=== PATIENT | female | born 1975 | race Two or more races ===

== ENCOUNTER 2018-09-13 15:44 | Emergency (ER) | payer BC ==
[~2018-09-13] VITALS: Ht 165.1 cm; Wt 90.7 kg
[2018-09-13 16:03] VITALS: BP 152/91
[2018-09-13] MEDS ORDERED: SODIUM CHLORIDE 0.9% 1,000 ML IV ONE (16:16)
[2018-09-13 16:25] LABS: Urine Bacteria NONE SEEN /hpf (None Seen); Urine Blood Negative /uL (Negative); Urine WBC <1 /hpf (0 - 5)
[2018-09-13 16:42] LABS: Basophils # (auto) 0.1 uL; Basophils % (auto) 0.8 % (0.0-2.0); Eosinophils # (auto) 0.1 uL; Eosinophils % (auto) 0.6 % (0.0-7.0); Hematocrit 44.1 % (36.0-46.0); Hemoglobin 15.1 g/dL (12.2-16.2); Lymphocytes # (auto) 2.2 uL; Lymphocytes % (auto) 20.8 % (10.0-50.0); Mean Corpuscular Hemoglobin 29.7 pg (28.0-32.0); Mean Corpuscular Hgb Conc. 34.1 g/dL (32.0-36.0); Monocytes # (auto) 0.5 uL; Monocytes % (auto) 4.6 % (0.0-12.0); Neutrophils # (auto) 7.7 uL; Neutrophils % (auto) 73.2 % (37.0-80.0); Platelet Count (auto) 237 10^3/uL (140-450); Red Blood Cells 5.07 10^6/uL (4.0-5.20); Red Cell Distribution Width 13.1 % (11.8-14.3); White Blood Cell 10.5 10^3/uL (4.4-10.8)
[2018-09-13 16:59] LABS: Albumin 3.6 g/dL (3.4-5.0); BUN/Creatinine Ratio 17.7; Calcium 8.5 mg/dL (8.5-10.1); Magnesium 1.9 mg/dL (1.6-2.6); Potassium 3.8 mmol/L (3.5-5.1)
[2018-09-13 17:01] LABS: Bilirubin, Total 0.3 mg/dL (0.2-1.0); Total Protein 8.3 g/dL (6.4-8.2)
== END 2018-09-13 18:13 | disposition home or self-care (01) ==
LOC: EEVIPCON 15:44 → ER 15:44
DX: E11.65 Type 2 diabetes mellitus with hyperglycemia (principal)
CPT/HCPCS: 36415; 80053; 81001; 82010; 82962; 83036; 83735; 85025; 94761; 96360; 99285; J7030

== ENCOUNTER → 2020-02-27 | Outpatient (CLI) | payer OTHER | END | disposition home or self-care (01) | LOC: LAB 13:46 | PROVIDERS: ATTEND Nurse Practitioner Family | DX: Z03.818 Encounter for observation for suspected exposure to other biological agents ruled out (principal) | CPT/HCPCS: C9803; U0003 ==

== ENCOUNTER → 2020-07-11 | Outpatient (CLI) | payer OTHER | END | disposition home or self-care (01) | LOC: LAB 09:00 | PROVIDERS: ATTEND Nurse Practitioner Family | DX: Z20.828 Contact with and (suspected) exposure to other viral communicable diseases (principal) ==

== ENCOUNTER → 2020-11-14 | Outpatient (CLI) | payer OTHER | END | disposition home or self-care (01) | LOC: LAB 14:40 | PROVIDERS: ATTEND Nurse Practitioner Family | DX: Z20.828 Contact with and (suspected) exposure to other viral communicable diseases (principal) ==

== ENCOUNTER 2021-06-19 06:48 | Inpatient (IN) | payer BC, OTHER ==
[~2021-06-19] VITALS: Ht 165.1 cm; Wt 86.2 kg
[2021-06-19 07:53] LABS: Basophils # (auto) 0 10 ^3/uL (0-0.2); Basophils % (auto) 0.5 % (0.0-2.0); Eosinophils # (auto) 0 10 ^3/uL (0-0.8); Eosinophils % (auto) 0.1 % (0.0-7.0); Hematocrit 47.7 % (36.0-46.0); Hemoglobin 16.4 g/dL (12.2-16.2); Lymphocytes # (auto) 0.7 10 ^3/uL (0.4-5.4); Lymphocytes % (auto) 12.3 % (10.0-50.0); Mean Corpuscular Hgb Conc. 34.4 g/dL (32.0-36.0); Monocytes # (auto) 0.6 10 ^3/uL (0-1.3); Monocytes % (auto) 9.7 % (0.0-12.0); Neutrophils # (auto) 4.5 10 ^3/uL (1.6-8.6); Neutrophils % (auto) 77.4 % (37.0-80.0); Nucleated Red Blood Cells % 0.2 %; Red Blood Cells 5.49 10^6/uL (4.0-5.20); Red Cell Distribution Width 12.8 % (11.8-14.3); White Blood Cell 5.8 10^3/uL (4.4-10.8)
[2021-06-19 07:58] LABS: Albumin 3.2 g/dL (3.4-5.0); Calcium 8.8 mg/dL (8.5-10.1); Potassium 4.4 mmol/L (3.5-5.1)
[2021-06-19] MEDS ORDERED: ACETAMINOPHEN 325 MG TAB PO ONE (08:00)
[2021-06-19 08:07] LABS: BUN/Creatinine Ratio 23.2; Bilirubin, Total 0.5 mg/dL (0.2-1.0); CRP High Sensitivity 10.1 mg/dL (< 0.3); Total Protein 8.8 g/dL (6.4-8.2)
[2021-06-19] MEDS ORDERED: InsuLIN REG 1unit/0.01ml Soln (100units/ml) IV ONE (08:15)
[2021-06-19] MEDS ORDERED: ZINC SULFATE 220mg CAP or TAB PO ONE (08:15)
[2021-06-19] MEDS ORDERED: DexAMETHasone SOD PHOS 10MG/1ML VIAL INJ IV ONE (08:15)
[2021-06-19] MEDS ORDERED: cefTRIAXone 1GM/50ML D5W 50 ML IV ONE (08:15)
[2021-06-19] MEDS ORDERED: ASCORBIC ACID 500 MG TAB PO ONE ×2 (08:15→09:15)
[2021-06-19] MEDS ORDERED: AZITHROMYCIN 500MG/ 250ML 250 ML IV ONE (08:15)
[2021-06-19] MEDS ORDERED: REMDESIVIR PER PHARMACY 0 ML IV SCH (08:15)
[2021-06-19] MEDS ORDERED: SODIUM CHLORIDE 0.9% 1,000 ML IV ONE ×2 (08:15)
[2021-06-19 08:18] LABS: Urine Bacteria FEW /hpf (None Seen); Urine Blood Negative /uL (Negative); Urine Hyaline Cast MOD /lpf (0 - 2); Urine Mucus FEW (None Seen); Urine Specific Gravity 1.035 (1.001-1.035); Urine WBC 2 /hpf (0 - 5)
[2021-06-19] MEDS ORDERED: NITROGLYCERIN 0.4 MG SL TAB SL PRN (09:00)
[2021-06-19] MEDS ORDERED: DEXTROSE (50%) 50ML SYRG IV PRN (09:00)
[2021-06-19] MEDS ORDERED: ACETAMINOPHEN 500 MG TAB PO PRN (09:00)
[2021-06-19] MEDS ORDERED: MORPHINE SULF INJ 2 MG/ML SYRINGE 1ML IV PRN (09:00)
[2021-06-19 10:25] VITALS: BP 131/86
[2021-06-19] MEDS: CHOLECALCIFEROL (VITD3) 2,000 UNIT CAP/TAB PO SCH (10:53)
[2021-06-19] MEDS: ENOXAPARIN SOD 40 MG/0.4 ML SYRINGE SC SCH ×2 (10:53→21:40)
[2021-06-19] MEDS: SODIUM CHLORIDE 0.9% 1,000 ML IV SCH ×2 (11:30→18:32)
[2021-06-19] MEDS: ACCU-CHEK COMFORT CURVE STRIP VI SCH ×3 (12:26→21:40)
[2021-06-19] MEDS: InsuLIN REG 1unit/0.01ml Soln (100units/ml) SC SCH ×3 (12:27→22:27)
[2021-06-19 13:00] VITALS: BP 95/61
[2021-06-19] MEDS ORDERED: REMDESIVIR 200 MG in NS 210ml LOADING DOSE ADULT IV ONE (15:00)
[2021-06-19 17:00] VITALS: BP 144/79
[2021-06-19] MEDS: BUDESONIDE (INHALATION) 180 MCG IH IN SCH (19:46)
[2021-06-19] MEDS: ALBUTEROL SULF HFA 90MCG INH 200DOSE IN PRN (19:54)
[2021-06-19 20:00] VITALS: BP 126/76
[2021-06-19 22:00] VITALS: BP 126/76
[2021-06-20] VITALS (8 sets, daily range): BP systolic 102–130; BP diastolic 66–80
[2021-06-20] MEDS: ACCU-CHEK COMFORT CURVE STRIP VI SCH ×4 (06:18→21:35)
[2021-06-20] MEDS: InsuLIN REG 1unit/0.01ml Soln (100units/ml) SC SCH ×4 (06:19→22:15)
[2021-06-20] MEDS: BUDESONIDE (INHALATION) 180 MCG IH IN SCH ×2 (06:31→22:00)
[2021-06-20] MEDS: ALBUTEROL SULF HFA 90MCG INH 200DOSE IN PRN ×2 (06:32→22:52)
[2021-06-20 06:50] LABS: Basophils # (auto) 0 10 ^3/uL (0-0.2); Basophils % (auto) 0.2 % (0.0-2.0); Eosinophils # (auto) 0 10 ^3/uL (0-0.8); Hematocrit 41.1 % (36.0-46.0); Hemoglobin 14.6 g/dL (12.2-16.2); Lymphocytes # (auto) 0.9 10 ^3/uL (0.4-5.4); Lymphocytes % (auto) 20.7 % (10.0-50.0); Mean Corpuscular Hgb Conc. 35.4 g/dL (32.0-36.0); Mean Corpuscular Volume 84.6 fL (80.0-100.0); Monocytes # (auto) 0.5 10 ^3/uL (0-1.3); Monocytes % (auto) 11.3 % (0.0-12.0); Neutrophils % (auto) 67.8 % (37.0-80.0); Nucleated Red Blood Cells % 0.1 %; Red Blood Cells 4.86 10^6/uL (4.0-5.20); Red Cell Distribution Width 12.6 % (11.8-14.3); White Blood Cell 4.4 10^3/uL (4.4-10.8)
[2021-06-20 07:06] LABS: Albumin 2.7 g/dL (3.4-5.0); Calcium 8.3 mg/dL (8.5-10.1); Potassium 3.3 mmol/L (3.5-5.1)
[2021-06-20 07:20] LABS: BUN/Creatinine Ratio 38.9; Bilirubin, Total 0.3 mg/dL (0.2-1.0); Total Protein 7.4 g/dL (6.4-8.2)
[2021-06-20] MEDS: DexAMETHasone SOD PHOS 10MG/1ML VIAL INJ IV SCH (10:15)
[2021-06-20] MEDS: ASCORBIC ACID 1,000 MG TAB PO SCH (10:16)
[2021-06-20] MEDS: ZINC SULFATE 220mg CAP or TAB PO SCH (10:16)
[2021-06-20] MEDS: AZITHROMYCIN 500MG/ 250ML 250 ML IV SCH (10:16)
[2021-06-20] MEDS: ENOXAPARIN SOD 40 MG/0.4 ML SYRINGE SC SCH ×2 (10:16→21:35)
[2021-06-20] MEDS: CHOLECALCIFEROL (VITD3) 2,000 UNIT CAP/TAB PO SCH (10:16)
[2021-06-20] MEDS ORDERED: FUROSEMIDE 20 MG/2 ML VIAL IV ONE (13:30)
[2021-06-20] MEDS ORDERED: POTASSIUM CHL 20 Meq TABLET PO ONE (13:30)
[2021-06-20] MEDS: REMDESIVIR 100mg 100 MG in SODIUM CHL 0.9% 230 ML IV SCH (15:14)
[2021-06-20] MEDS ORDERED: DEXTROSE (50%) 50ML SYRG IV PRN (17:15)
[2021-06-20] MEDS: metFORMIN HYDROCHLORIDE 500 MG TAB PO SCH (18:15)
[2021-06-20] MEDS ORDERED: INSULIN LANTUS (GLARGINE) 1 /0.01ml (100units/ml) SC SCH (22:00)
[2021-06-20] MEDS: INSULIN LANTUS (GLARGINE) 1 /0.01ml (100units/ml) SC SCH (22:14)
[2021-06-21 05:20] VITALS: BP 112/74
[2021-06-21 06:26] LABS: Potassium 3.1 mmol/L (3.5-5.1)
[2021-06-21 06:29] LABS: Albumin 2.9 g/dL (3.4-5.0); BUN/Creatinine Ratio 42.1; Calcium 8.6 mg/dL (8.5-10.1)
[2021-06-21 06:32] LABS: Bilirubin, Total 0.4 mg/dL (0.2-1.0); Total Protein 7.5 g/dL (6.4-8.2)
[2021-06-21] MEDS: ACCU-CHEK COMFORT CURVE STRIP VI SCH ×4 (06:54→21:47)
[2021-06-21] MEDS: InsuLIN REG 1unit/0.01ml Soln (100units/ml) SC SCH ×4 (06:55→22:11)
[2021-06-21] MEDS: ZINC SULFATE 220mg CAP or TAB PO SCH (07:51)
[2021-06-21] MEDS: DexAMETHasone SOD PHOS 10MG/1ML VIAL INJ IV SCH (07:51)
[2021-06-21] MEDS: AZITHROMYCIN 500MG/ 250ML 250 ML IV SCH (07:51)
[2021-06-21] MEDS: metFORMIN HYDROCHLORIDE 500 MG TAB PO SCH ×2 (07:51→18:42)
[2021-06-21] MEDS: CHOLECALCIFEROL (VITD3) 2,000 UNIT CAP/TAB PO SCH (07:52)
[2021-06-21] MEDS: ALBUTEROL SULF HFA 90MCG INH 200DOSE IN PRN (07:52)
[2021-06-21] MEDS: ASCORBIC ACID 1,000 MG TAB PO SCH (07:52)
[2021-06-21] MEDS: BUDESONIDE (INHALATION) 180 MCG IH IN SCH ×2 (07:52→19:19)
[2021-06-21 09:00] VITALS: BP 101/56
[2021-06-21] MEDS ORDERED: POTASSIUM CHL 20 Meq TABLET PO SCH (10:00)
[2021-06-21] MEDS: INSULIN LANTUS (GLARGINE) 1 /0.01ml (100units/ml) SC SCH ×2 (10:50→22:55)
[2021-06-21] MEDS: FUROSEMIDE 20 MG/2 ML VIAL IV SCH (10:51)
[2021-06-21 13:09] VITALS: BP 131/74
[2021-06-21] MEDS: ENOXAPARIN SOD 40 MG/0.4 ML SYRINGE SC SCH ×2 (15:33→21:47)
[2021-06-21] MEDS: REMDESIVIR 100mg 100 MG in SODIUM CHL 0.9% 230 ML IV SCH (15:33)
[2021-06-21 17:00] VITALS: BP 104/73
[2021-06-21] MEDS: POTASSIUM CHL 20 Meq TABLET PO SCH (21:46)
[2021-06-21 22:20] VITALS: BP 120/75
[2021-06-22 05:16] VITALS: BP 98/69
[2021-06-22] MEDS: ALBUTEROL SULF HFA 90MCG INH 200DOSE IN PRN ×2 (06:10→21:42)
[2021-06-22] MEDS: BUDESONIDE (INHALATION) 180 MCG IH IN SCH ×2 (06:11→21:42)
[2021-06-22] MEDS: ACCU-CHEK COMFORT CURVE STRIP VI SCH ×4 (06:27→21:54)
[2021-06-22] MEDS: guaiFENesin-DM 100/10mg/5ml SYR PO PRN (06:28)
[2021-06-22] MEDS: InsuLIN REG 1unit/0.01ml Soln (100units/ml) SC SCH ×4 (06:29→21:56)
[2021-06-22 06:37] LABS: Albumin 2.2 g/dL (3.4-5.0); Calcium 8.2 mg/dL (8.5-10.1); Potassium 3.9 mmol/L (3.5-5.1)
[2021-06-22 06:39] LABS: BUN/Creatinine Ratio 42.4; Bilirubin, Total 0.6 mg/dL (0.2-1.0); Total Protein 7.6 g/dL (6.4-8.2)
[2021-06-22] MEDS: metFORMIN HYDROCHLORIDE 500 MG TAB PO SCH ×2 (08:16→18:26)
[2021-06-22 09:00] VITALS: BP 112/76
[2021-06-22] MEDS: FUROSEMIDE 20 MG/2 ML VIAL IV SCH (09:49)
[2021-06-22] MEDS: DexAMETHasone SOD PHOS 10MG/1ML VIAL INJ IV SCH (09:49)
[2021-06-22] MEDS: ZINC SULFATE 220mg CAP or TAB PO SCH (09:49)
[2021-06-22] MEDS: ASCORBIC ACID 1,000 MG TAB PO SCH (09:50)
[2021-06-22] MEDS: POTASSIUM CHL 20 Meq TABLET PO SCH ×2 (09:50→21:53)
[2021-06-22] MEDS: AZITHROMYCIN 500MG/ 250ML 250 ML IV SCH (09:50)
[2021-06-22] MEDS: CHOLECALCIFEROL (VITD3) 2,000 UNIT CAP/TAB PO SCH (09:50)
[2021-06-22] MEDS: ENOXAPARIN SOD 40 MG/0.4 ML SYRINGE SC SCH ×2 (09:51→21:54)
[2021-06-22] MEDS: INSULIN LANTUS (GLARGINE) 1 /0.01ml (100units/ml) SC SCH ×2 (10:54→21:59)
[2021-06-22 13:00] VITALS: BP 110/77
[2021-06-22] MEDS: REMDESIVIR 100mg 100 MG in SODIUM CHL 0.9% 230 ML IV SCH (13:52)
[2021-06-22 14:31] VITALS: BP 112/76
[2021-06-22 17:00] VITALS: BP 106/66
[2021-06-22 22:00] VITALS: BP 100/69
[2021-06-23 05:00] VITALS: BP 114/83
[2021-06-23] MEDS: ALBUTEROL SULF HFA 90MCG INH 200DOSE IN PRN (05:47)
[2021-06-23] MEDS: BUDESONIDE (INHALATION) 180 MCG IH IN SCH (05:48)
[2021-06-23 06:25] LABS: Albumin 2.7 g/dL (3.4-5.0); BUN/Creatinine Ratio 37.5; Calcium 8.7 mg/dL (8.5-10.1); Potassium 3.4 mmol/L (3.5-5.1)
[2021-06-23 06:28] LABS: Bilirubin, Total 0.7 mg/dL (0.2-1.0); Total Protein 7.8 g/dL (6.4-8.2)
[2021-06-23] MEDS: ACCU-CHEK COMFORT CURVE STRIP VI SCH ×4 (06:58→21:43)
[2021-06-23] MEDS: InsuLIN REG 1unit/0.01ml Soln (100units/ml) SC SCH ×4 (06:59→21:40)
[2021-06-23 08:00] VITALS: BP 112/75
[2021-06-23] MEDS: FUROSEMIDE 20 MG/2 ML VIAL IV SCH (08:42)
[2021-06-23] MEDS: ASCORBIC ACID 1,000 MG TAB PO SCH (08:42)
[2021-06-23] MEDS: metFORMIN HYDROCHLORIDE 500 MG TAB PO SCH ×2 (08:42→18:52)
[2021-06-23] MEDS: DexAMETHasone SOD PHOS 10MG/1ML VIAL INJ IV SCH (08:42)
[2021-06-23] MEDS: ZINC SULFATE 220mg CAP or TAB PO SCH (08:42)
[2021-06-23] MEDS: AZITHROMYCIN 500MG/ 250ML 250 ML IV SCH (08:42)
[2021-06-23] MEDS: CHOLECALCIFEROL (VITD3) 2,000 UNIT CAP/TAB PO SCH (08:43)
[2021-06-23] MEDS: POTASSIUM CHL 20 Meq TABLET PO SCH ×2 (08:43→21:47)
[2021-06-23] MEDS: ENOXAPARIN SOD 40 MG/0.4 ML SYRINGE SC SCH ×2 (09:14→21:46)
[2021-06-23] MEDS ORDERED: POTASSIUM EFFERVESENT TAB 25 MEQ PO ONE (10:45)
[2021-06-23] MEDS: INSULIN LANTUS (GLARGINE) 1 /0.01ml (100units/ml) SC SCH ×2 (11:07→21:42)
[2021-06-23 12:00] VITALS: BP 108/75
[2021-06-23] MEDS: REMDESIVIR 100mg 100 MG in SODIUM CHL 0.9% 230 ML IV SCH (14:39)
[2021-06-23 16:00] VITALS: BP 121/70
[2021-06-23 22:00] VITALS: BP 117/70
[2021-06-24] MEDS: BUDESONIDE (INHALATION) 180 MCG IH IN SCH ×3 (00:32→19:29)
[2021-06-24] MEDS: ALBUTEROL SULF HFA 90MCG INH 200DOSE IN PRN ×3 (00:33→19:29)
[2021-06-24 05:00] VITALS: BP 107/79
[2021-06-24 05:41] LABS: Basophils # (auto) 0 10 ^3/uL (0-0.2); Basophils % (auto) 0.4 % (0.0-2.0); Eosinophils # (auto) 0 10 ^3/uL (0-0.8); Eosinophils % (auto) 0.1 % (0.0-7.0); Hematocrit 43.7 % (36.0-46.0); Hemoglobin 15.6 g/dL (12.2-16.2); Lymphocytes # (auto) 1.7 10 ^3/uL (0.4-5.4); Lymphocytes % (auto) 19.5 % (10.0-50.0); Mean Corpuscular Hemoglobin 30.5 pg (28.0-32.0); Mean Corpuscular Hgb Conc. 35.7 g/dL (32.0-36.0); Mean Corpuscular Volume 85.3 fL (80.0-100.0); Monocytes # (auto) 0.8 10 ^3/uL (0-1.3); Monocytes % (auto) 8.6 % (0.0-12.0); Neutrophils # (auto) 6.2 10 ^3/uL (1.6-8.6); Neutrophils % (auto) 71.4 % (37.0-80.0); Nucleated Red Blood Cells % 0.1 %; Red Blood Cells 5.12 10^6/uL (4.0-5.20); Red Cell Distribution Width 12.5 % (11.8-14.3); White Blood Cell 8.7 10^3/uL (4.4-10.8)
[2021-06-24] MEDS: ACCU-CHEK COMFORT CURVE STRIP VI SCH ×4 (06:20→22:00)
[2021-06-24] MEDS: InsuLIN REG 1unit/0.01ml Soln (100units/ml) SC SCH ×4 (06:21→22:03)
[2021-06-24 08:00] VITALS: BP 106/68
[2021-06-24] MEDS: ZINC SULFATE 220mg CAP or TAB PO SCH (08:22)
[2021-06-24] MEDS: POTASSIUM CHL 20 Meq TABLET PO SCH ×2 (08:22→22:00)
[2021-06-24] MEDS: ASCORBIC ACID 1,000 MG TAB PO SCH (08:22)
[2021-06-24] MEDS: metFORMIN HYDROCHLORIDE 500 MG TAB PO SCH ×2 (08:23→18:42)
[2021-06-24] MEDS: FUROSEMIDE 20 MG/2 ML VIAL IV SCH ×2 (08:23→18:43)
[2021-06-24] MEDS: DexAMETHasone SOD PHOS 10MG/1ML VIAL INJ IV SCH (08:23)
[2021-06-24] MEDS: CHOLECALCIFEROL (VITD3) 2,000 UNIT CAP/TAB PO SCH (08:23)
[2021-06-24] MEDS: ENOXAPARIN SOD 40 MG/0.4 ML SYRINGE SC SCH ×2 (08:24→22:00)
[2021-06-24] MEDS: AZITHROMYCIN 500MG/ 250ML 250 ML IV SCH (08:24)
[2021-06-24] MEDS: guaiFENesin-DM 100/10mg/5ml SYR PO PRN (08:45)
[2021-06-24] MEDS: INSULIN LANTUS (GLARGINE) 1 /0.01ml (100units/ml) SC SCH ×2 (11:39→22:02)
[2021-06-24 12:00] VITALS: BP 97/73
[2021-06-24 16:00] VITALS: BP 110/64
[2021-06-24 22:03] VITALS: BP 113/62
[2021-06-25 05:01] VITALS: BP 109/70
[2021-06-25] MEDS: ALBUTEROL SULF HFA 90MCG INH 200DOSE IN PRN ×2 (06:10→20:23)
[2021-06-25] MEDS: BUDESONIDE (INHALATION) 180 MCG IH IN SCH ×2 (06:10→20:23)
[2021-06-25] MEDS: FUROSEMIDE 20 MG/2 ML VIAL IV SCH ×2 (06:24→17:45)
[2021-06-25] MEDS: ACCU-CHEK COMFORT CURVE STRIP VI SCH ×4 (06:24→21:57)
[2021-06-25] MEDS: InsuLIN REG 1unit/0.01ml Soln (100units/ml) SC SCH ×4 (06:24→22:15)
[2021-06-25] MEDS: metFORMIN HYDROCHLORIDE 500 MG TAB PO SCH ×2 (08:00→17:45)
[2021-06-25 08:41] VITALS: BP_SYST 109; BP_SYST 92; BP_DIAS 55; BP_DIAS 70
[2021-06-25] MEDS ORDERED: HYDROmorphone HCL 2 MG/ML VL IV ONE (09:15)
[2021-06-25] MEDS ORDERED: HYDROcodone-ACET 5/325MG TAB PO PRN (09:30)
[2021-06-25] MEDS: ENOXAPARIN SOD 40 MG/0.4 ML SYRINGE SC SCH ×2 (10:00→22:13)
[2021-06-25] MEDS: LORazepam 2MG/ML-1ML VIAL IV PRN (10:00)
[2021-06-25] MEDS: CHOLECALCIFEROL (VITD3) 2,000 UNIT CAP/TAB PO SCH (10:00)
[2021-06-25] MEDS: ZINC SULFATE 220mg CAP or TAB PO SCH (10:00)
[2021-06-25] MEDS: MULTIPLE VITAMIN TAB PO SCH (10:00)
[2021-06-25] MEDS: INSULIN LANTUS (GLARGINE) 1 /0.01ml (100units/ml) SC SCH ×2 (10:00→22:14)
[2021-06-25] MEDS: ASCORBIC ACID 1,000 MG TAB PO SCH (10:00)
[2021-06-25] MEDS: POTASSIUM CHL 20 Meq TABLET PO SCH ×2 (10:00→22:14)
[2021-06-25] MEDS ORDERED: DexAMETHasone 4 MG TAB PO SCH (10:00)
[2021-06-25 10:20] LABS: Basophils # (auto) 0 10 ^3/uL (0-0.2); Basophils % (auto) 0.1 % (0.0-2.0); Eosinophils # (auto) 0 10 ^3/uL (0-0.8); Eosinophils % (auto) 0.1 % (0.0-7.0); Hematocrit 47.1 % (36.0-46.0); Lymphocytes # (auto) 1.4 10 ^3/uL (0.4-5.4); Mean Corpuscular Hemoglobin 29.5 pg (28.0-32.0); Mean Corpuscular Hgb Conc. 33.9 g/dL (32.0-36.0); Mean Corpuscular Volume 86.9 fL (80.0-100.0); Monocytes # (auto) 0.9 10 ^3/uL (0-1.3); Neutrophils # (auto) 12.8 10 ^3/uL (1.6-8.6); Neutrophils % (auto) 84.8 % (37.0-80.0); Nucleated Red Blood Cells % 0.1 %; Red Blood Cells 5.42 10^6/uL (4.0-5.20); Red Cell Distribution Width 12.8 % (11.8-14.3); White Blood Cell 15.1 10^3/uL (4.4-10.8)
[2021-06-25 10:47] LABS: Albumin 2.5 g/dL (3.4-5.0); Calcium 8.7 mg/dL (8.5-10.1); Magnesium 1.4 mg/dL (1.6-2.6); Phosphorus 4.5 mg/dL (2.5-4.90); Potassium 3.5 mmol/L (3.5-5.1)
[2021-06-25 10:58] LABS: BUN/Creatinine Ratio 35.9; Bilirubin, Total 0.8 mg/dL (0.2-1.0)
[2021-06-25] MEDS: DOXYCYCLINE 100MG/250ML 250 ML IV SCH ×2 (11:39→23:29)
[2021-06-25 12:41] VITALS: BP 123/79
[2021-06-25] MEDS: MAGNESIUM SULFATE 1GM/100ML 100 ML IV SCH ×3 (13:14→15:40)
[2021-06-25] MEDS: PIPERACILLIN-TAZOB 3.375GM 100 ML IV SCH ×2 (14:51→20:23)
[2021-06-25 16:41] VITALS: BP 123/70
[2021-06-25 22:00] VITALS: BP 125/82
[2021-06-26] MEDS: PIPERACILLIN-TAZOB 3.375GM 100 ML IV SCH ×4 (01:52→20:00)
[2021-06-26 05:00] VITALS: BP 129/80
[2021-06-26] MEDS: FUROSEMIDE 20 MG/2 ML VIAL IV SCH (06:10)
[2021-06-26] MEDS: ACCU-CHEK COMFORT CURVE STRIP VI SCH ×4 (06:11→22:36)
[2021-06-26] MEDS: InsuLIN REG 1unit/0.01ml Soln (100units/ml) SC SCH ×4 (06:33→22:44)
[2021-06-26] MEDS: metFORMIN HYDROCHLORIDE 500 MG TAB PO SCH ×2 (08:05→18:02)
[2021-06-26] MEDS: BUDESONIDE (INHALATION) 180 MCG IH IN SCH ×2 (08:11→22:00)
[2021-06-26] MEDS: ALBUTEROL SULF HFA 90MCG INH 200DOSE IN PRN ×2 (08:11→22:50)
[2021-06-26 09:00] VITALS: BP 107/64
[2021-06-26] MEDS: ENOXAPARIN SOD 40 MG/0.4 ML SYRINGE SC SCH ×2 (09:38→22:36)
[2021-06-26] MEDS: DexAMETHasone SOD PHOS 10MG/1ML VIAL INJ IV SCH (09:38)
[2021-06-26] MEDS: MULTIPLE VITAMIN TAB PO SCH (09:38)
[2021-06-26] MEDS: POTASSIUM CHL 20 Meq TABLET PO SCH ×2 (09:38→22:35)
[2021-06-26] MEDS: ZINC SULFATE 220mg CAP or TAB PO SCH (09:38)
[2021-06-26] MEDS: CHOLECALCIFEROL (VITD3) 2,000 UNIT CAP/TAB PO SCH (09:38)
[2021-06-26] MEDS: INSULIN LANTUS (GLARGINE) 1 /0.01ml (100units/ml) SC SCH ×2 (09:40→22:43)
[2021-06-26] MEDS: ASCORBIC ACID 1,000 MG TAB PO SCH (09:41)
[2021-06-26] MEDS: DOXYCYCLINE 100MG/250ML 250 ML IV SCH ×2 (11:15→23:35)
[2021-06-26 12:00] VITALS: BP 110/64
[2021-06-26 12:23] LABS: Basophils # (auto) 0 10 ^3/uL (0-0.2); Basophils % (auto) 0.2 % (0.0-2.0); Eosinophils # (auto) 0 10 ^3/uL (0-0.8); Eosinophils % (auto) 0.1 % (0.0-7.0); Hematocrit 44.2 % (36.0-46.0); Hemoglobin 15.2 g/dL (12.2-16.2); Lymphocytes # (auto) 0.6 10 ^3/uL (0.4-5.4); Lymphocytes % (auto) 5.4 % (10.0-50.0); Mean Corpuscular Hemoglobin 29.6 pg (28.0-32.0); Mean Corpuscular Hgb Conc. 34.5 g/dL (32.0-36.0); Monocytes # (auto) 0.4 10 ^3/uL (0-1.3); Monocytes % (auto) 3.8 % (0.0-12.0); Neutrophils # (auto) 10.4 10 ^3/uL (1.6-8.6); Neutrophils % (auto) 90.5 % (37.0-80.0); Nucleated Red Blood Cells % 0.1 %; Red Blood Cells 5.14 10^6/uL (4.0-5.20); Red Cell Distribution Width 12.7 % (11.8-14.3); White Blood Cell 11.4 10^3/uL (4.4-10.8)
[2021-06-26 12:50] LABS: BUN/Creatinine Ratio 26.3; Calcium 8.6 mg/dL (8.5-10.1); Potassium 4.3 mmol/L (3.5-5.1)
[2021-06-26] MEDS: guaiFENesin-DM 100/10mg/5ml SYR PO PRN (16:56)
[2021-06-26 17:00] VITALS: BP 109/73
[2021-06-26] MEDS: FUROSEMIDE 40 MG/4 ML VIAL IV SCH (18:02)
[2021-06-26] MEDS ORDERED: TOCILIZUMAB 400 MG in SODIUM CHL 0.9% 80 ML IV ONE (20:00)
[2021-06-26 22:00] VITALS: BP 118/72
[2021-06-27] MEDS: PIPERACILLIN-TAZOB 3.375GM 100 ML IV SCH ×4 (01:41→20:00)
[2021-06-27 05:00] VITALS: BP 124/87
[2021-06-27] MEDS: ACCU-CHEK COMFORT CURVE STRIP VI SCH ×4 (06:21→21:54)
[2021-06-27] MEDS: FUROSEMIDE 40 MG/4 ML VIAL IV SCH ×2 (06:21→17:51)
[2021-06-27] MEDS: BUDESONIDE (INHALATION) 180 MCG IH IN SCH ×2 (06:22→21:54)
[2021-06-27] MEDS: ALBUTEROL SULF HFA 90MCG INH 200DOSE IN PRN ×2 (06:22→21:55)
[2021-06-27] MEDS: InsuLIN REG 1unit/0.01ml Soln (100units/ml) SC SCH ×4 (06:23→21:53)
[2021-06-27] MEDS: metFORMIN HYDROCHLORIDE 500 MG TAB PO SCH ×2 (08:15→17:51)
[2021-06-27 09:00] VITALS: BP 113/77
[2021-06-27] MEDS ORDERED: LACTULOSE 20Gm/30ML SOLN PO PRN (09:30)
[2021-06-27] MEDS ORDERED: LACTULOSE 20Gm/30ML SOLN PO ONE (09:30)
[2021-06-27] MEDS ORDERED: TOCILIZUMAB 400 MG in SODIUM CHL 0.9% 80 ML IV ONE (10:00)
[2021-06-27] MEDS: DexAMETHasone SOD PHOS 10MG/1ML VIAL INJ IV SCH (11:08)
[2021-06-27] MEDS: MULTIPLE VITAMIN TAB PO SCH (11:09)
[2021-06-27] MEDS: CHOLECALCIFEROL (VITD3) 2,000 UNIT CAP/TAB PO SCH (11:09)
[2021-06-27] MEDS: POTASSIUM CHL 20 Meq TABLET PO SCH ×2 (11:09→21:54)
[2021-06-27] MEDS: ZINC SULFATE 220mg CAP or TAB PO SCH (11:09)
[2021-06-27] MEDS: ASCORBIC ACID 1,000 MG TAB PO SCH (11:09)
[2021-06-27] MEDS: INSULIN LANTUS (GLARGINE) 1 /0.01ml (100units/ml) SC SCH ×2 (11:10→21:53)
[2021-06-27] MEDS: ENOXAPARIN SOD 40 MG/0.4 ML SYRINGE SC SCH ×2 (11:11→21:54)
[2021-06-27 12:19] VITALS: BP 104/76
[2021-06-27] MEDS: DOXYCYCLINE 100MG/250ML 250 ML IV SCH (14:27)
[2021-06-27 16:58] VITALS: BP 115/71
[2021-06-27 22:00] VITALS: BP 118/65
[2021-06-28] MEDS: DOXYCYCLINE 100MG/250ML 250 ML IV SCH ×2 (00:51→12:49)
[2021-06-28] MEDS: PIPERACILLIN-TAZOB 3.375GM 100 ML IV SCH ×4 (03:04→20:25)
[2021-06-28 04:54] VITALS: BP 115/78
[2021-06-28] MEDS: FUROSEMIDE 40 MG/4 ML VIAL IV SCH ×2 (06:08→17:34)
[2021-06-28] MEDS: ACCU-CHEK COMFORT CURVE STRIP VI SCH ×4 (06:08→22:19)
[2021-06-28] MEDS: InsuLIN REG 1unit/0.01ml Soln (100units/ml) SC SCH ×4 (06:09→22:09)
[2021-06-28] MEDS: ALBUTEROL SULF HFA 90MCG INH 200DOSE IN PRN ×2 (06:53→20:36)
[2021-06-28] MEDS: BUDESONIDE (INHALATION) 180 MCG IH IN SCH ×2 (06:53→19:56)
[2021-06-28 08:45] VITALS: BP 109/73
[2021-06-28 09:00] VITALS: BP 116/82
[2021-06-28] MEDS: metFORMIN HYDROCHLORIDE 500 MG TAB PO SCH ×2 (09:00→17:34)
[2021-06-28] MEDS: DexAMETHasone SOD PHOS 10MG/1ML VIAL INJ IV SCH (10:10)
[2021-06-28] MEDS: CHOLECALCIFEROL (VITD3) 2,000 UNIT CAP/TAB PO SCH (10:15)
[2021-06-28] MEDS: MULTIPLE VITAMIN TAB PO SCH (10:15)
[2021-06-28] MEDS: POTASSIUM CHL 20 Meq TABLET PO SCH ×2 (10:15→22:20)
[2021-06-28] MEDS: ZINC SULFATE 220mg CAP or TAB PO SCH (10:15)
[2021-06-28] MEDS: ASCORBIC ACID 1,000 MG TAB PO SCH (10:15)
[2021-06-28] MEDS: INSULIN LANTUS (GLARGINE) 1 /0.01ml (100units/ml) SC SCH ×2 (10:16→22:09)
[2021-06-28] MEDS: ENOXAPARIN SOD 40 MG/0.4 ML SYRINGE SC SCH ×2 (10:17→22:18)
[2021-06-28 12:50] VITALS: BP 109/73
[2021-06-28 17:26] VITALS: BP 116/76
[2021-06-28 22:03] VITALS: BP 115/65
[2021-06-29] MEDS: DOXYCYCLINE 100MG/250ML 250 ML IV SCH ×3 (00:21→12:20)
[2021-06-29] MEDS: PIPERACILLIN-TAZOB 3.375GM 100 ML IV SCH ×4 (03:02→20:56)
[2021-06-29 05:05] VITALS: BP 111/79
[2021-06-29] MEDS: ACCU-CHEK COMFORT CURVE STRIP VI SCH ×4 (06:34→21:12)
[2021-06-29] MEDS: InsuLIN REG 1unit/0.01ml Soln (100units/ml) SC SCH ×4 (06:34→21:13)
[2021-06-29] MEDS: FUROSEMIDE 40 MG/4 ML VIAL IV SCH ×2 (06:34→18:03)
[2021-06-29] MEDS: BUDESONIDE (INHALATION) 180 MCG IH IN SCH ×2 (06:56→21:20)
[2021-06-29] MEDS: ALBUTEROL SULF HFA 90MCG INH 200DOSE IN PRN ×2 (06:56→23:00)
[2021-06-29] MEDS: metFORMIN HYDROCHLORIDE 500 MG TAB PO SCH ×2 (08:05→18:04)
[2021-06-29 09:00] VITALS: BP 113/77
[2021-06-29] MEDS: MULTIPLE VITAMIN TAB PO SCH (10:36)
[2021-06-29] MEDS: DexAMETHasone SOD PHOS 10MG/1ML VIAL INJ IV SCH (10:36)
[2021-06-29] MEDS: ZINC SULFATE 220mg CAP or TAB PO SCH (10:36)
[2021-06-29] MEDS: POTASSIUM CHL 20 Meq TABLET PO SCH ×2 (10:36→21:11)
[2021-06-29] MEDS: CHOLECALCIFEROL (VITD3) 2,000 UNIT CAP/TAB PO SCH (10:37)
[2021-06-29] MEDS: INSULIN LANTUS (GLARGINE) 1 /0.01ml (100units/ml) SC SCH ×2 (10:37→21:12)
[2021-06-29] MEDS: ASCORBIC ACID 1,000 MG TAB PO SCH (10:37)
[2021-06-29] MEDS: ENOXAPARIN SOD 40 MG/0.4 ML SYRINGE SC SCH ×2 (10:38→21:11)
[2021-06-29 13:00] VITALS: BP 110/72
[2021-06-29] MEDS: ASPirin 81 mg TAB PO SCH (13:28)
[2021-06-29 16:48] VITALS: BP 124/68
[2021-06-29 22:00] VITALS: BP 126/68
[2021-06-30] MEDS: PIPERACILLIN-TAZOB 3.375GM 100 ML IV SCH ×4 (03:00→20:48)
[2021-06-30 05:00] VITALS: BP 111/86
[2021-06-30] MEDS: InsuLIN REG 1unit/0.01ml Soln (100units/ml) SC SCH ×4 (06:33→21:31)
[2021-06-30] MEDS: ACCU-CHEK COMFORT CURVE STRIP VI SCH ×4 (06:33→21:32)
[2021-06-30] MEDS: FUROSEMIDE 40 MG/4 ML VIAL IV SCH ×2 (06:33→17:54)
[2021-06-30] MEDS: BUDESONIDE (INHALATION) 180 MCG IH IN SCH ×2 (06:47→19:22)
[2021-06-30] MEDS: ALBUTEROL SULF HFA 90MCG INH 200DOSE IN PRN ×2 (06:47→20:42)
[2021-06-30] MEDS: metFORMIN HYDROCHLORIDE 500 MG TAB PO SCH ×2 (08:00→17:54)
[2021-06-30] MEDS: guaiFENesin-DM 100/10mg/5ml SYR PO PRN (08:42)
[2021-06-30 09:00] VITALS: BP 108/63
[2021-06-30] MEDS: POTASSIUM CHL 20 Meq TABLET PO SCH ×2 (09:30→21:33)
[2021-06-30] MEDS: ASPirin 81 mg TAB PO SCH (09:30)
[2021-06-30] MEDS: ZINC SULFATE 220mg CAP or TAB PO SCH (09:30)
[2021-06-30] MEDS: DexAMETHasone SOD PHOS 10MG/1ML VIAL INJ IV SCH (09:30)
[2021-06-30] MEDS: CHOLECALCIFEROL (VITD3) 2,000 UNIT CAP/TAB PO SCH (09:40)
[2021-06-30] MEDS: MULTIPLE VITAMIN TAB PO SCH (09:41)
[2021-06-30] MEDS: ENOXAPARIN SOD 40 MG/0.4 ML SYRINGE SC SCH ×2 (09:41→21:32)
[2021-06-30] MEDS: ASCORBIC ACID 1,000 MG TAB PO SCH (09:41)
[2021-06-30] MEDS: INSULIN LANTUS (GLARGINE) 1 /0.01ml (100units/ml) SC SCH ×2 (09:42→21:32)
[2021-06-30] MEDS: DOXYCYCLINE 100MG/250ML 250 ML IV SCH ×2 (11:15→23:52)
[2021-06-30 13:00] VITALS: BP 122/73
[2021-06-30 17:00] VITALS: BP 116/75
[2021-06-30 21:34] VITALS: BP 130/83
[2021-07-01] MEDS: PIPERACILLIN-TAZOB 3.375GM 100 ML IV SCH ×5 (03:01→21:45)
[2021-07-01 05:00] VITALS: BP 111/73
[2021-07-01] MEDS: FUROSEMIDE 40 MG/4 ML VIAL IV SCH ×2 (06:19→17:02)
[2021-07-01] MEDS: InsuLIN REG 1unit/0.01ml Soln (100units/ml) SC SCH ×4 (06:19→21:16)
[2021-07-01] MEDS: ALBUTEROL SULF HFA 90MCG INH 200DOSE IN PRN ×2 (06:20→19:29)
[2021-07-01] MEDS: ACCU-CHEK COMFORT CURVE STRIP VI SCH ×4 (06:20→21:21)
[2021-07-01] MEDS: BUDESONIDE (INHALATION) 180 MCG IH IN SCH ×2 (06:20→19:29)
[2021-07-01 07:15] LABS: Basophils # (auto) 0 10 ^3/uL (0-0.2); Basophils % (auto) 0.6 % (0.0-2.0); Eosinophils # (auto) 0.2 10 ^3/uL (0-0.8); Eosinophils % (auto) 1.9 % (0.0-7.0); Hematocrit 46.1 % (36.0-46.0); Hemoglobin 15.8 g/dL (12.2-16.2); Lymphocytes # (auto) 2.5 10 ^3/uL (0.4-5.4); Lymphocytes % (auto) 29.5 % (10.0-50.0); Mean Corpuscular Hemoglobin 29.3 pg (28.0-32.0); Mean Corpuscular Hgb Conc. 34.2 g/dL (32.0-36.0); Mean Corpuscular Volume 85.6 fL (80.0-100.0); Monocytes # (auto) 0.6 10 ^3/uL (0-1.3); Monocytes % (auto) 6.5 % (0.0-12.0); Neutrophils # (auto) 5.3 10 ^3/uL (1.6-8.6); Neutrophils % (auto) 61.5 % (37.0-80.0); Nucleated Red Blood Cells % 0.1 %; Red Blood Cells 5.38 10^6/uL (4.0-5.20); Red Cell Distribution Width 12.6 % (11.8-14.3); White Blood Cell 8.6 10^3/uL (4.4-10.8)
[2021-07-01 07:27] LABS: Calcium 8.5 mg/dL (8.5-10.1); Potassium 3.1 mmol/L (3.5-5.1)
[2021-07-01 07:30] LABS: BUN/Creatinine Ratio 44.4
[2021-07-01] MEDS: metFORMIN HYDROCHLORIDE 500 MG TAB PO SCH ×2 (08:15→17:02)
[2021-07-01 09:00] VITALS: BP 126/88
[2021-07-01 09:06] VITALS: BP 111/73
[2021-07-01] MEDS: DexAMETHasone SOD PHOS 10MG/1ML VIAL INJ IV SCH (10:19)
[2021-07-01] MEDS: POTASSIUM CHL 20 Meq TABLET PO SCH ×2 (10:19→20:58)
[2021-07-01] MEDS: MULTIPLE VITAMIN TAB PO SCH (10:19)
[2021-07-01] MEDS: ASPirin 81 mg TAB PO SCH (10:19)
[2021-07-01] MEDS: ZINC SULFATE 220mg CAP or TAB PO SCH (10:19)
[2021-07-01] MEDS: CHOLECALCIFEROL (VITD3) 2,000 UNIT CAP/TAB PO SCH (10:20)
[2021-07-01] MEDS: ASCORBIC ACID 1,000 MG TAB PO SCH (10:20)
[2021-07-01] MEDS: ENOXAPARIN SOD 40 MG/0.4 ML SYRINGE SC SCH ×2 (10:20→20:58)
[2021-07-01] MEDS: INSULIN LANTUS (GLARGINE) 1 /0.01ml (100units/ml) SC SCH ×2 (10:31→21:17)
[2021-07-01] MEDS ORDERED: POTASSIUM CHL 20 Meq TABLET PO ONE (11:15)
[2021-07-01] MEDS: DOXYCYCLINE 100MG/250ML 250 ML IV SCH (11:32)
[2021-07-01 13:00] VITALS: BP 117/76
[2021-07-01 16:55] VITALS: BP 111/72
[2021-07-01] MEDS ORDERED: POTA1TAB61 PO (20:08)
[2021-07-01] MEDS ORDERED: ALBUAER3 IN (20:08)
[2021-07-01] MEDS ORDERED: ZINC220T6 PO (20:08)
[2021-07-01] MEDS ORDERED: FURO20TA3 PO (20:08)
[2021-07-01] MEDS ORDERED: CHOL1CAP47 PO (20:08)
[2021-07-01] MEDS ORDERED: ASCO10003 PO (20:08)
[2021-07-01] MEDS: MAGNESIUM SULFATE 1GM/100ML 100 ML IV SCH (20:44)
[2021-07-01] MEDS: guaiFENesin-DM 100/10mg/5ml SYR PO PRN (21:12)
[2021-07-01 22:30] VITALS: BP 121/79
[2021-07-02] MEDS: DOXYCYCLINE 100MG/250ML 250 ML IV SCH ×2 (00:53→13:41)
[2021-07-02] MEDS ORDERED: MAGNESIUM SULFATE 1GM/100ML 100 ML IV ONE (01:59)
[2021-07-02] MEDS: PIPERACILLIN-TAZOB 3.375GM 100 ML IV SCH ×3 (02:00→14:00)
[2021-07-02] MEDS: LORazepam 2MG/ML-1ML VIAL IV PRN (03:03)
[2021-07-02] MEDS: MAGNESIUM SULFATE 1GM/100ML 100 ML IV SCH (04:37)
[2021-07-02 05:00] VITALS: BP 126/94
[2021-07-02] MEDS: FUROSEMIDE 40 MG/4 ML VIAL IV SCH (06:11)
[2021-07-02] MEDS: ACCU-CHEK COMFORT CURVE STRIP VI SCH ×2 (06:11→11:30)
[2021-07-02] MEDS: InsuLIN REG 1unit/0.01ml Soln (100units/ml) SC SCH ×2 (06:15→13:42)
[2021-07-02] MEDS: ALBUTEROL SULF HFA 90MCG INH 200DOSE IN PRN (06:45)
[2021-07-02] MEDS: BUDESONIDE (INHALATION) 180 MCG IH IN SCH (06:46)
[2021-07-02 07:13] LABS: Calcium 8.8 mg/dL (8.5-10.1); Potassium 3.5 mmol/L (3.5-5.1)
[2021-07-02 07:17] LABS: BUN/Creatinine Ratio 45.2; Magnesium 2.5 mg/dL (1.6-2.6); Phosphorus 3.4 mg/dL (2.5-4.90)
[2021-07-02] MEDS: metFORMIN HYDROCHLORIDE 500 MG TAB PO SCH (08:34)
[2021-07-02] MEDS: MULTIPLE VITAMIN TAB PO SCH (08:35)
[2021-07-02] MEDS: ASPirin 81 mg TAB PO SCH (08:35)
[2021-07-02] MEDS: ZINC SULFATE 220mg CAP or TAB PO SCH (08:35)
[2021-07-02] MEDS: ASCORBIC ACID 1,000 MG TAB PO SCH (08:35)
[2021-07-02] MEDS: POTASSIUM CHL 20 Meq TABLET PO SCH (08:35)
[2021-07-02] MEDS: DexAMETHasone SOD PHOS 10MG/1ML VIAL INJ IV SCH (08:35)
[2021-07-02] MEDS: CHOLECALCIFEROL (VITD3) 2,000 UNIT CAP/TAB PO SCH (08:36)
[2021-07-02] MEDS: ENOXAPARIN SOD 40 MG/0.4 ML SYRINGE SC SCH (08:36)
[2021-07-02 08:37] VITALS: BP 121/78
[2021-07-02] MEDS: INSULIN LANTUS (GLARGINE) 1 /0.01ml (100units/ml) SC SCH (08:48)
[2021-07-02 13:01] VITALS: BP 121/72
[2021-07-02 14:31] VITALS: BP 121/78
== END 2021-07-02 16:34 | disposition home or self-care (01) | DRG 177 ==
LOC: ER 06:48 → EEVIPCON 06:48 → TELE 09:00 → TELE-EAST 11:16
PROVIDERS: ADMIT Nurse Practitioner Acute Care; ATTEND Internal Medicine
PROC: XW033E5 Introduction of Remdesivir Anti-infective into Peripheral Vein, Percutaneous Approach, New Technology Group 5 (ICD-10-PCS; 2021-06-19)
PROC: XW13325 Transfusion of Convalescent Plasma (Nonautologous) into Peripheral Vein, Percutaneous Approach, New Technology Group 5 (ICD-10-PCS; principal; 2021-06-20)
PROC: 05HF33Z Insertion of Infusion Device into Left Cephalic Vein, Percutaneous Approach (ICD-10-PCS; 2021-06-25)
PROC: B54NZZA Ultrasonography of Left Upper Extremity Veins, Guidance (ICD-10-PCS; 2021-06-25)
PROC: XW033H5 Introduction of Tocilizumab into Peripheral Vein, Percutaneous Approach, New Technology Group 5 (ICD-10-PCS; 2021-06-26)
PROC: 05HB33Z Insertion of Infusion Device into Right Basilic Vein, Percutaneous Approach (ICD-10-PCS; 2021-06-28)
PROC: B54MZZA Ultrasonography of Right Upper Extremity Veins, Guidance (ICD-10-PCS; 2021-06-28)
DX: U07.1 COVID-19 (principal); E11.10 Type 2 diabetes mellitus with ketoacidosis without coma; J12.82 Pneumonia due to coronavirus disease 2019; J96.01 Acute respiratory failure with hypoxia; D68.59 Other primary thrombophilia; E44.1 Mild protein-calorie malnutrition; I82.619 Acute embolism and thrombosis of superficial veins of unspecified upper extremity; E66.9 Obesity, unspecified; D89.839 Cytokine release syndrome, grade unspecified; E11.65 Type 2 diabetes mellitus with hyperglycemia; E88.09 Other disorders of plasma-protein metabolism, not elsewhere classified; Z68.34 Body mass index [BMI] 34.0-34.9, adult; Z79.84 Long term (current) use of oral hypoglycemic drugs; Z83.3 Family history of diabetes mellitus
CPT/HCPCS: 36415; 36600; 71045; 71250; 80048; 80053; 81001; 82010; 82728; 82805; 82962; 83036; 83605; 83735; 83880; 84100; 84132; 85025; 85379; 86141; 86850; 86900; 86901; 87040; 87426; 93970; 93971; 94640; 96365; 96367; 96375; 99291; G0378; J0696; J1100; J1815; J2543; J3490

== ENCOUNTER → 2021-07-10 | Outpatient (CLI) | payer BC ==
[~2021-07-10] MED LIST: ALBUAER3 IN; ASCO10003 PO; CHOL1CAP47 PO; FURO20TA3 PO; POTA1TAB61 PO; ZINC220T6 PO
[2021-07-10 16:32] LABS: Basophils # (auto) 0.1 10 ^3/uL (0-0.2); Basophils % (auto) 0.6 % (0.0-2.0); Eosinophils # (auto) 0.3 10 ^3/uL (0-0.8); Eosinophils % (auto) 3.3 % (0.0-7.0); Hemoglobin 14.7 g/dL (12.2-16.2); Lymphocytes # (auto) 2.5 10 ^3/uL (0.4-5.4); Lymphocytes % (auto) 30.3 % (10.0-50.0); Mean Corpuscular Hemoglobin 29.4 pg (28.0-32.0); Mean Corpuscular Hgb Conc. 34.3 g/dL (32.0-36.0); Mean Corpuscular Volume 85.9 fL (80.0-100.0); Monocytes # (auto) 0.5 10 ^3/uL (0-1.3); Monocytes % (auto) 6.1 % (0.0-12.0); Neutrophils # (auto) 4.8 10 ^3/uL (1.6-8.6); Neutrophils % (auto) 59.7 % (37.0-80.0); Nucleated Red Blood Cells % 0.1 %; Red Cell Distribution Width 12.7 % (11.8-14.3); White Blood Cell 8.1 10^3/uL (4.4-10.8)
[2021-07-10 16:37] LABS: Albumin 3.5 g/dL (3.4-5.0); BUN/Creatinine Ratio 25.6; Potassium 3.9 mmol/L (3.5-5.1)
[2021-07-10 16:39] LABS: Bilirubin, Total 0.7 mg/dL (0.2-1.0); Total Protein 7.3 g/dL (6.4-8.2)
== END | disposition home or self-care (01) ==
LOC: LAB 15:52
PROVIDERS: ATTEND Internal Medicine
DX: E11.9 Type 2 diabetes mellitus without complications (principal); Z86.16 Personal history of COVID-19
CPT/HCPCS: 36415; 80053; 83880; 85025

== ENCOUNTER 2021-07-25 06:52 | Emergency (ER) | payer BC ==
[~2021-07-25] VITALS: Ht 165.1 cm; Wt 87.5 kg
[2021-07-25 07:56] LABS: Basophils # (auto) 0.1 10 ^3/uL (0-0.2); Basophils % (auto) 0.9 % (0.0-2.0); Eosinophils # (auto) 0.1 10 ^3/uL (0-0.8); Eosinophils % (auto) 0.9 % (0.0-7.0); Hematocrit 38.7 % (36.0-46.0); Hemoglobin 13.7 g/dL (12.2-16.2); Lymphocytes # (auto) 1.6 10 ^3/uL (0.4-5.4); Lymphocytes % (auto) 17.8 % (10.0-50.0); Mean Corpuscular Hemoglobin 30.7 pg (28.0-32.0); Mean Corpuscular Hgb Conc. 35.5 g/dL (32.0-36.0); Mean Corpuscular Volume 86.4 fL (80.0-100.0); Monocytes # (auto) 0.6 10 ^3/uL (0-1.3); Neutrophils # (auto) 6.8 10 ^3/uL (1.6-8.6); Neutrophils % (auto) 74.4 % (37.0-80.0); Red Blood Cells 4.48 10^6/uL (4.0-5.20); Red Cell Distribution Width 14.9 % (11.8-14.3); White Blood Cell 9.2 10^3/uL (4.4-10.8)
[2021-07-25 08:18] LABS: Albumin 3.5 g/dL (3.4-5.0); Anion Gap 8 (5-15); Blood Urea Nitrogen 21 mg/dL (7-18); Calcium 8.7 mg/dL (8.5-10.1); Carbon Dioxide 20 mmol/L (21-32); Chloride 107 mmol/L (98-107); Glucose 258 mg/dL (74-106); Potassium 3.5 mmol/L (3.5-5.1); Sodium 135 mmol/L (136-145)
[2021-07-25 08:25] LABS: Alanine Aminotransferase 30 U/L (13-56); Alkaline Phosphatase 132 U/L (45-117); Aspartate Aminotransferase 12 U/L (15-37); BUN/Creatinine Ratio 34.4; Bilirubin, Total 0.5 mg/dL (0.2-1.0); GFR African American 137 mL/min; GFR Non-African American 113 mL/min; Total Protein 7.8 g/dL (6.4-8.2)
[2021-07-25] MEDS ORDERED: IOHEXOL 350 MG/ML 100ML IJ ONE (09:38)
[2021-07-25 11:20] VITALS: BP 105/61
[2021-07-25] MEDS ORDERED: SODIUM CHLORIDE 0.9% 1,000 ML IV ONE (11:30)
== END 2021-07-25 13:11 | disposition home or self-care (01) ==
LOC: ER 06:52 → EEVIPCON 06:52 → ER 13:04
DX: R06.03 Acute respiratory distress (principal); E11.9 Type 2 diabetes mellitus without complications; Z20.822 Contact with and (suspected) exposure to COVID-19
CPT/HCPCS: 36415; 71045; 71275; 80053; 84484; 85025; 85379; 87426; 93005; 96360; 99285; J7030; Q9967

== ENCOUNTER → 2021-08-27 | Outpatient (CLI) | payer BC | END | disposition home or self-care (01) | LOC: RT 08:27 | PROVIDERS: ATTEND Internal Medicine Pulmonary Disease | DX: U07.1 COVID-19 (principal); J98.4 Other disorders of lung | CPT/HCPCS: 94060; 94618; 94727; 94729 ==

== ENCOUNTER → 2021-11-18 | Outpatient (CLI) | payer MEDICAID ==
[2021-11-18 07:17] LABS: Basophils # (auto) 0 10 ^3/uL (0-0.2); Basophils % (auto) 0.4 % (0.0-2.0); Eosinophils # (auto) 0.1 10 ^3/uL (0-0.8); Eosinophils % (auto) 0.9 % (0.0-7.0); Hematocrit 43.5 % (36.0-46.0); Hemoglobin 14.4 g/dL (12.2-16.2); Lymphocytes # (auto) 1.4 10 ^3/uL (0.4-5.4); Lymphocytes % (auto) 22.1 % (10.0-50.0); Mean Corpuscular Hemoglobin 28.2 pg (28.0-32.0); Mean Corpuscular Hgb Conc. 33.2 g/dL (32.0-36.0); Mean Corpuscular Volume 85.1 fL (80.0-100.0); Monocytes # (auto) 0.2 10 ^3/uL (0-1.3); Monocytes % (auto) 3.8 % (0.0-12.0); Neutrophils # (auto) 4.7 10 ^3/uL (1.6-8.6); Neutrophils % (auto) 72.8 % (37.0-80.0); Nucleated Red Blood Cells % 0.2 %; Red Blood Cells 5.11 10^6/uL (4.0-5.20); Red Cell Distribution Width 12.6 % (11.8-14.3); White Blood Cell 6.5 10^3/uL (4.4-10.8)
[2021-11-18 07:30] LABS: INR 1.01 (0.9-1.15)
[2021-11-18 08:30] LABS: Cholesterol 227 mg/dL (< 200); Creatine Kinase IFCC 35 U/L (26-192); HDL Cholesterol 44 mg/dL (40-59); LDL Cholesterol 150 mg/dL (< 100); Triglycerides 170 mg/dL (< 150)
== END | disposition home or self-care (01) ==
LOC: LAB 06:50
PROVIDERS: ATTEND Internal Medicine
DX: E11.9 Type 2 diabetes mellitus without complications (principal); R05.9 Cough, unspecified; B94.8 Sequelae of other specified infectious and parasitic diseases
CPT/HCPCS: 36415; 80061; 82550; 83036; 85025; 85610; 85652

== ENCOUNTER 2022-07-03 16:36 | Emergency (ER) | payer MEDICAID ==
[~2022-07-03] VITALS: Ht 165.1 cm; Wt 87.0 kg
[2022-07-03 16:54] LABS: Basophils # (auto) 0 10 ^3/uL (0-0.2); Basophils % (auto) 0.5 % (0.0-2.0); Eosinophils # (auto) 0.1 10 ^3/uL (0-0.8); Eosinophils % (auto) 0.8 % (0.0-7.0); Hematocrit 46.9 % (36.0-46.0); Hemoglobin 15.5 g/dL (12.2-16.2); Lymphocytes # (auto) 2.4 10 ^3/uL (0.4-5.4); Lymphocytes % (auto) 29.1 % (10.0-50.0); Mean Corpuscular Hemoglobin 28.4 pg (28.0-32.0); Mean Corpuscular Volume 86.1 fL (80.0-100.0); Monocytes # (auto) 0.4 10 ^3/uL (0-1.3); Monocytes % (auto) 4.7 % (0.0-12.0); Neutrophils # (auto) 5.3 10 ^3/uL (1.6-8.6); Neutrophils % (auto) 64.9 % (37.0-80.0); Red Blood Cells 5.45 10^6/uL (4.0-5.20); Red Cell Distribution Width 13.1 % (11.8-14.3); White Blood Cell 8.2 10^3/uL (4.4-10.8)
[2022-07-03 17:11] LABS: INR 0.93 (0.9-1.15); Partial Thromboplastin Time 25.9 sec (24.6-33.4)
[2022-07-03 17:12] VITALS: BP 134/95
[2022-07-03 17:21] LABS: Alanine Aminotransferase 34 U/L (13-56); Albumin 3.7 g/dL (3.4-5.0); Anion Gap 9 (5-15); Aspartate Aminotransferase 11 U/L (15-37); BUN/Creatinine Ratio 21.3; Blood Urea Nitrogen 13 mg/dL (7-18); Calcium 8.7 mg/dL (8.5-10.1); Carbon Dioxide 22 mmol/L (21-32); Chloride 107 mmol/L (98-107); GFR African American 136 mL/min; GFR Non-African American 113 mL/min; Glucose 369 mg/dL (74-106); Potassium 3.8 mmol/L (3.5-5.1); Sodium 138 mmol/L (136-145)
[2022-07-03 17:25] LABS: Alkaline Phosphatase 161 U/L (45-117); Bilirubin, Total 0.4 mg/dL (0.2-1.0); Total Protein 8.5 g/dL (6.4-8.2)
[2022-07-03] MEDS ORDERED: SULF400T11 PO (17:27)
== END 2022-07-03 17:50 | disposition home or self-care (01) ==
LOC: EEVIPCON 16:36 → ER 16:36
DX: R21 Rash and other nonspecific skin eruption (principal); E11.9 Type 2 diabetes mellitus without complications; Z79.899 Other long term (current) drug therapy; Z88.8 Allergy status to other drugs, medicaments and biological substances
CPT/HCPCS: 36415; 80053; 85025; 85610; 85730

== ENCOUNTER 2022-07-31 17:13 | Emergency (ER) | payer MEDICAID ==
[~2022-07-31] VITALS: Ht 165.1 cm; Wt 86.0 kg
[~2022-07-31 17:13] MED LIST changes: +SULF400T11 PO
[2022-07-31] MEDS ORDERED: methylPREDNISolone SOD SUCC 125 MG/2 ML VL IM ONE (17:30)
[2022-07-31] MEDS ORDERED: cefTRIAXone SOD 1,000 MG VL IM ONE (17:30)
[2022-07-31 17:58] VITALS: BP 155/97
[2022-07-31] MEDS ORDERED: AZIT500T66 PO (18:01)
[2022-07-31] MEDS ORDERED: LIDO2SOL23 MT (18:01)
== END 2022-07-31 18:38 | disposition home or self-care (01) ==
LOC: ER 17:13 → EEVIPCON 17:13 → ER 18:38
DX: J03.90 Acute tonsillitis, unspecified (principal); E11.9 Type 2 diabetes mellitus without complications; I10 Essential (primary) hypertension; Z88.6 Allergy status to analgesic agent
CPT/HCPCS: 87070; 87880; 96372; 99284; J0696; J2930

== ENCOUNTER 2025-02-18 15:51 | Emergency (ER) | payer OTHER, BC ==
[~2025-02-18] VITALS: Ht 162.6 cm; Wt 86.5 kg
[~2025-02-18 15:51] MED LIST changes: +AZIT500T66 PO; +CEPH500C PO; +LIDO2SOL26 MT; +POTA-215 PO; -POTA1TAB61 PO
[2025-02-18 16:06] VITALS: BP 128/80; PULSE 110; RESP 18; TEMP 98; O2SAT 99
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
[2025-02-18] MEDS ORDERED: METH-1182 PO (17:20)
[2025-02-18] MEDS ORDERED: IBUP-1456 PO (17:20)
[2025-02-18] MEDS: KETOROLAC TROMETH 60MG/2ML VIAL IM ONE (17:24)
== END 2025-02-18 17:35 | disposition home or self-care (01) ==
LOC: ER 15:51
DX: S16.1XXA Strain of muscle, fascia and tendon at neck level, initial encounter (principal); I10 Essential (primary) hypertension; E11.9 Type 2 diabetes mellitus without complications; Z79.1 Long term (current) use of non-steroidal anti-inflammatories (NSAID); Z79.899 Other long term (current) drug therapy; Z88.8 Allergy status to other drugs, medicaments and biological substances; Z91.041 Radiographic dye allergy status; V43.62XA Car passenger injured in collision with other type car in traffic accident, initial encounter; Y93.89 Activity, other specified; Y92.410 Unspecified street and highway as the place of occurrence of the external cause; Y99.8 Other external cause status
CPT/HCPCS: 72040; 96372; 99283; J1885

== ENCOUNTER 2025-08-28 11:54 | Outpatient (CLI) | payer BC ==
[~2025-08-28 11:54] MED LIST changes: +IBUP-1456 PO; +METH-1182 PO
[2025-08-28 12:57] LABS: Hematocrit 43.2 % (36.0-46.0); Hemoglobin 14.9 g/dL (12.2-16.2); Mean Corpuscular Hemoglobin 29.9 pg (28.0-32.0); Mean Corpuscular Volume 87.0 fL (80.0-100.0); Nucleated Red Blood Cells % 0.2 %
[2025-08-28 13:32] LABS: Alanine Aminotransferase 25 U/L (7-40); Albumin 4.4 g/dL (3.2-4.8); Anion Gap 12 (5-15); BUN/Creatinine Ratio 13.3 (10.0-20.0); Blood Urea Nitrogen 10 mg/dL (9-23); Calcium 9.3 mg/dL (8.7-10.4); Carbon Dioxide 25 mmol/L (20-31); Chloride 101 mmol/L (98-107); HDL Cholesterol 55 mg/dL (40-59); Potassium 4.3 mmol/L (3.5-5.1); Sodium 138 mmol/L (136-145); Total Protein 7.8 g/dL (5.7-8.2)
[2025-08-28 13:33] LABS: Bilirubin, Total 0.5 mg/dL (0.2-1.0)
[2025-08-28 13:34] LABS: Alkaline Phosphatase 152 U/L (46-116); Cholesterol 254 mg/dL (< 200); Glucose 372 mg/dL (74-106); Triglycerides 250 mg/dL (< 150)
[2025-08-28 14:02] LABS: Urine Protein, UAD TRACE (Negative)
== END 2025-08-28 17:00 | disposition home or self-care (01) ==
LOC: LAB 11:54
PROVIDERS: ATTEND Nurse Practitioner
DX: I10 Essential (primary) hypertension (principal); E11.9 Type 2 diabetes mellitus without complications; E78.5 Hyperlipidemia, unspecified
CPT/HCPCS: 36415; 80053; 80061; 81001; 83036; 84443; 85025